=== PATIENT | female | born 1990 | race Hispanic/Latino ===

== ENCOUNTER 2021-05-01 20:55 | Emergency (ER) | payer OTHER ==
[2021-05-01] MEDS ORDERED: THIAMINE 100 MG, FOLIC ACID 1 MG, MULTIPLE VITAMIN INJ, ADULT 10 ML in SODIUM CHLORIDE ... IV ONE (21:29)
[2021-05-01] MEDS ORDERED: LORazepam 2 MG/ML VIAL IV ONE ×2 (21:31→23:27)
--- NOTE | 2021-05-01 21:31 | Emergency Department Report ---
HPI - General Chief Complaint: Alcohol Time Seen by Provider: 05/01/21 21:19 - HPI HPI: 31-year-old female presents to the emergency department requesting some IV fluid and possibly something for anxiety in order to treat her alcoholism. The patient last drank alcohol about 2 hours ago. She denies any history of alcohol withdrawal seizures or delirium tremens. Patient says "my type of alcoholism is that when I am not drinking I do not crave it, but if I start drinking I cannot stop." Patient says that she is trying to return back home to [place] where she says that she has a good support system including some type of detox/rehabilitation center called [facility]. She plans on driving back home in the morning. She denies any current nausea, vomiting, tremors, fever, agitation but does say that she feels anxious. ED Past Medical Hx - Past Medical History Previous Medical History?: No - Surgical History Past Surgical History?: No - Medications Home Medications: Home Medications Medication Instructions Recorded Confirmed Last Taken Type chlordiazePOXIDE HCl 10 mg PO Q8H PRN #6 capsule 05/02/21 Unknown Rx [Chlordiazepoxide HCl] ED Review of Systems ROS: Stated complaint: DETOX/ETOH Other details as noted in HPI Comment: All other systems reviewed and negative Constitutional: denies: chills, fever Eyes: denies: eye pain, vision change ENT: denies: ear pain, throat pain Respiratory: denies: cough, shortness of breath Cardiovascular: denies: chest pain, palpitations Gastrointestinal: denies: abdominal pain, vomiting Genitourinary: denies: dysuria, discharge Musculoskeletal: denies: back pain, arthralgia Skin: denies: rash, lesions Neurological: denies: headache, weakness Psychiatric: anxiety Physical Exam - Physical Exam Vital Signs: Vital Signs 05/01/21 21:09 Temperature 97.8 F Pulse Rate 81 Respiratory 18 Rate Blood Pressure 129/89 O2 Sat by Pulse 96 Oximetry Physical Exam: GENERAL: The patient is well-developed well-nourished. HENT: Normocephalic. Atraumatic. Patient has moist mucous membranes. EYES: Extraocular motions are intact. NECK: Supple. Trachea is midline. CHEST/LUNGS: Clear to auscultation. There is no respiratory distress noted. HEART/CARDIOVASCULAR: Regular. There is no tachycardia. There is no murmur. ABDOMEN: Abdomen is soft, nontender. Patient has normal bowel sounds. SKIN: Skin is warm and dry. NEURO: The patient is awake, alert, and oriented. Patient appears intoxicated. The patient has no focal neurologic deficits. Normal speech. MUSCULOSKELETAL: There is no tenderness or deformity. There is no limitation range of motion. ED Course Vital Signs 05/01/21 21:09 Temperature 97.8 F Pulse Rate 81 Respiratory 18 Rate Blood Pressure 129/89 O2 Sat by Pulse 96 Oximetry ED Medical Decision Making - Lab Data Result diagrams: 05/01/21 21:35 05/01/21 21:35 Lab Results 05/01/21 05/01/21 05/01/21 Range/Units 21:35 21:35 21:35 WBC 5.8 (4.5-11.0) K/mm3 RBC 4.75 (3.65-5.03) M/mm3 Hgb 14.7 H (10.1-14.3) gm/dl Hct 43.8 H (30.3-42.9) % MCV 92 (79-97) fl MCH 31 (28-32) pg MCHC 34 (30-34) % RDW 13.8 (13.2-15.2) % Plt Count 238 (140-440) K/mm3 Lymph % (Auto) 34.9 (13.4-35.0) % [place] % (Auto) 8.1 H (0.0-7.3) % Eos % (Auto) 1.1 (0.0-4.3) % Baso % (Auto) 0.9 (0.0-1.8) % Lymph # (Auto) 2.0 (1.2-5.4) K/mm3 [place] # (Auto) 0.5 (0.0-0.8) K/mm3 Eos # (Auto) 0.1 (0.0-0.4) K/mm3 Baso # (Auto) 0.0 (0.0-0.1) K/mm3 Seg Neutrophils % 55.0 (40.0-70.0) % Seg Neutrophils # 3.2 (1.8-7.7) K/mm3 Sodium 143 (137-145) mmol/L Potassium 3.9 (3.6-5.0) mmol/L Chloride 104.4 (98-107) mmol/L Carbon Dioxide 26 (22-30) mmol/L Anion Gap 17 mmol/L BUN 12 (7-17) mg/dL Creatinine 0.6 (0.6-1.2) mg/dL Estimated GFR > 60 ml/min BUN/Creatinine Ratio 20 % Glucose 97 (65-100) mg/dL Calcium 9.1 (8.4-10.2) mg/dL Magnesium 2.10 (1.7-2.3) mg/dL Total Bilirubin < 0.20 (0.1-1.2) mg/dL AST 20 (5-40) units/L ALT 35 (7-56) units/L Alkaline Phosphatase 114 (35-129) units/L Total Protein 8.3 H (6.3-8.2) g/dL Albumin 4.7 (3.9-5) g/dL Albumin/Globulin Ratio 1.3 % Plasma/Serum Alcohol 0.26 H (0-0.07) % - Medical Decision Making This patient presents to the emergency department with alcohol intoxication and a history of alcoholism. However, it appears that the patient just has a history of alcoholism and less of a history of alcohol dependence. Patient is anxious about her relapse and wants to get back home to [place] where she says that she has a treatment center and a support system available to her. However, she feels that if she were to be discharged from the hospital initially that she would go right back to finding liquor/alcohol. The patient's blood alcohol level came back at 0.26. The rest of the labs are unremarkable including CBC and metabolic panel. The patient was given some IV fluid resuscitation through a banana bag. She was given 2 small doses of Ativan to help with her anxiety. She was reevaluated multiple times over more than 7 hours and at this point the patient should be close to the legal limit. She definitely appears clinically sober. The patient will be discharged home with a prescription for a small amount or short course of Librium to help with any possible withdrawal or the anxiety of avoiding further alcohol intoxication as she makes her way back home to the treatment center in [place]. Critical Care Time: No Critical care attestation.: If time is entered above; I have spent that time in minutes in the direct care of this critically ill patient, excluding procedure time. ED Disposition Clinical Impression: History of alcoholism Alcohol intoxication Qualifiers: Complication of substance-induced condition: uncomplicated Qualified Code(s): F10.920 - Alcohol use, unspecified with intoxication, uncomplicated Disposition: 01 HOME / SELF CARE / HOMELESS Is pt being admited?: No Condition: Stable Instructions: Alcohol Use Disorder, Alcohol Abuse and Dependence Information, Adult Additional Instructions: Please follow-up with the alcohol detox/rehabilitation program in [place] as planned. You have been prescribed a medication that is sedating and therefore should not be taken prior to driving, working, and responsible for children and in no way should be mixed with alcohol of any quantity. Return to the emergency department with any worsening of your symptoms, new or concerning symptoms not addressed during this current emergency department visit, or with any acute distress. Prescriptions: chlordiazePOXIDE HCl [Chlordiazepoxide HCl] 10 mg PO Q8H PRN #6 capsule PRN Reason: Anxiety Referrals: PRIMARY CARE, [Primary Care Provider] - 2-3 Days Time of Disposition: 05:04
[2021-05-01 21:47] LABS: Basophils % (Auto) 0.9 % (0.0-1.8); Eosinophils # (Auto) 0.1 K/mm3 (0.0-0.4); Eosinophils % (Auto) 1.1 % (0.0-4.3); Hematocrit 43.8 % (30.3-42.9); Hemoglobin 14.7 gm/dl (10.1-14.3); Lymphocytes % (Auto) 34.9 % (13.4-35.0); Mean Corpuscular HGB Conc 34 % (30-34); Mean Corpuscular Volume 92 fl (79-97); Monocytes # (Auto) 0.5 K/mm3 (0.0-0.8); Monocytes % (Auto) 8.1 % (0.0-7.3); Platelet Count 238 K/mm3 (140-440); Red Blood Count 4.75 M/mm3 (3.65-5.03); Red Cell Distribution Width 13.8 % (13.2-15.2)
[2021-05-01 22:10] LABS: Alanine Aminotransferase 35 units/L (7-56); Albumin 4.7 g/dL (3.9-5); Blood Urea Nitrogen 12 mg/dL (7-17); Calcium 9.1 mg/dL (8.4-10.2); Hemolysis Index 5
[2021-05-01 22:13] LABS: BUN/Creatinine Ratio 20
[2021-05-02] MEDS ORDERED: LORazepam 2 MG/ML VIAL IV PRN ×2 (00:56)
[2021-05-02] MEDS ORDERED: SODIUM CHLORIDE 0.9% 1000 ML 1,000 ML IV ONE (01:04)
[2021-05-02 05:10] VITALS: BP 122/80
--- NOTE | 2021-05-04 11:32 | Electrocardiograph Report ---
[facility] Test Date: 2021-05-02 Test Time: 00:16:15 Pat Name: ALTHA PETERSON Department: Room: Gender: F Work From Home: [employer] : 1990 Requested By: KAMALJIT ENRIQUEZ Order Number: [id number] Reading MD: Rush Ford Measurements Intervals [place] Rate: 68 P: 51 [place]: 134 QRS: 5 QRSD: 101 T: 5 QT: 404 QTc: 429 Interpretive Statements Sinus rhythm Low voltage, precordial leads INCOMPLETE RIGHT BUNDLE BRANCH BLOCK No previous ECG available for comparison Electronically Signed On 05-04-2021 11:31:56 EST by Rush Ford
== END 2021-05-02 12:29 | disposition home or self-care (01) ==
LOC: ED 20:55
DX: F10.120 Alcohol abuse with intoxication, uncomplicated (principal)
CPT/HCPCS: 36415; 80053; 83735; 85025; 93005; 96365; 96366; 96375; 96376; 99284; J2060; J3411; J7030; 80320; G0480